=== PATIENT | female | born 1940 | race Caucasian/White ===

== ENCOUNTER 2019-03-21 12:01 | Observation (INO) | payer MEDICARE ==
[~2019-03-21] VITALS: Ht 170.2 cm; Wt 139.4 kg
[2019-03-21] MEDS ORDERED: MORPHINE SULFATE 4 MG/ML, 1ML IVPush PRN (12:30)
[2019-03-21] MEDS ORDERED: ASPIRIN 81 MG TABLET CHEW PO ONE (12:30)
--- NOTE | 2019-03-21 12:34 | NUR ---
Received report from MALLORIE Carmen. All questions answered. Assuming care of pt at this time. NADN. No other needs expressed. Call light within reach.
[2019-03-21] MEDS ORDERED: ASPIRIN 81 MG TABLET CHEW ONE (12:48)
[2019-03-21] MEDS ORDERED: MORPHINE SULFATE 4 MG/ML, 1ML ONE (12:49)
[2019-03-21 12:58] LABS: BASOPHILS # (AUTO) 0.01 x10^3/uL (0-0.1); BASOPHILS % (AUTO) 0 % (0-1); EOSINOPHILS % (AUTO) 3 % (1-7); LYMPHOCYTES # (AUTO) 1.43 x10^3/uL (1-3.4); LYMPHOCYTES % (AUTO) 20 % (22-44); MD NO; MEAN CORPUSCULAR HEMOGLOBIN 28.5 pg (27.0-34.8); MEAN PLATELET VOLUME 10.9 fL (7.4-10.4); MONOCYTES # (AUTO) 0.67 x10^3/uL (0.2-0.8); MONOCYTES % (AUTO) 9 % (2-9); NEUTROPHILS # (AUTO) 4.89 x10^3/uL (1.8-6.8); NEUTROPHILS % (AUTO) 68 % (42-75); PLATELET COUNT 142 x10^3/uL (130-400); RED BLOOD COUNT 4.11 x10^6/uL (3.82-5.3); RED CELL DISTRIBUTION WIDTH 16.8 % (9.6-15.2)
--- NOTE | 2019-03-21 13:00 | NUR ---
Provided medication per EMAR. NADN. No needs expressed. Pt remains connected to NIBP cuff, continous pulse ox monitor, and county historian. Bedrails up x 2 and call light within reach.
[2019-03-21 13:11] LABS: ALBUMIN 3.5 g/dL (3.4-5.0); ANION GAP 4 mmol/L (5-15); CALCIUM 9.4 mg/dL (8.5-10.1); CHLORIDE 106 mmol/L (98-107)
[2019-03-21 13:18] LABS: ALANINE AMINOTRANSFERASE 32 U/L (12-78); ALKALINE PHOSPHATASE 70 U/L (45-117); CREATININE 1.35 mg/dL (0.55-1.02); TOTAL PROTEIN 6.9 g/dL (6.4-8.2); TROPONIN I < 0.015 ng/mL (0.000-0.045)
[2019-03-21] MEDS ORDERED: ALLO100T30 PO (13:52)
[2019-03-21] MEDS ORDERED: AMLO-150 PO (13:52)
[2019-03-21] MEDS ORDERED: BUDE10.2 INH (13:52)
[2019-03-21] MEDS ORDERED: FLUT12HF2 INH (13:52)
[2019-03-21] MEDS ORDERED: IPRA4AER INH (13:52)
[2019-03-21] MEDS ORDERED: APIX5TAB PO (13:52)
[2019-03-21] MEDS ORDERED: GABA300C10 PO (13:52)
[2019-03-21] MEDS ORDERED: INSU100C5 SQ-INSULIN (13:52)
[2019-03-21] MEDS ORDERED: ACYC-113 PO (13:52)
[2019-03-21] MEDS ORDERED: IPRA3AMP30 INH (13:52)
[2019-03-21] MEDS ORDERED: dextrose PO (13:52)
[2019-03-21] MEDS ORDERED: INSU100I13 SQ-INSULIN (13:52)
[2019-03-21] MEDS ORDERED: albuterol INH (13:52)
[2019-03-21] MEDS ORDERED: cranberry PO (13:52)
[2019-03-21] MEDS ORDERED: CETI-237 PO (13:52)
[2019-03-21] MEDS ORDERED: LACT1CAP11 PO (14:03)
[2019-03-21] MEDS ORDERED: MULT-115 PO (14:03)
[2019-03-21] MEDS ORDERED: PANT40TA5 PO (14:03)
[2019-03-21] MEDS ORDERED: OXYBUTYNIN PO (14:03)
[2019-03-21] MEDS ORDERED: NITR0.4T41 SL (14:03)
[2019-03-21] MEDS ORDERED: ROSU5TAB PO (14:03)
[2019-03-21] MEDS ORDERED: METO200T2 PO (14:03)
[2019-03-21] MEDS ORDERED: NYST60PO TP (14:03)
[2019-03-21] MEDS ORDERED: LOSA25TA2 PO (14:03)
[2019-03-21] MEDS ORDERED: ISOS120T4 PO (14:03)
[2019-03-21] MEDS ORDERED: LEVO75TA PO (14:03)
[2019-03-21] MEDS ORDERED: KRIL1CAP5 PO (14:03)
[2019-03-21] MEDS ORDERED: VANC50SO3 PO (14:03)
[2019-03-21] MEDS ORDERED: Tumeric PO (14:03)
--- NOTE | 2019-03-21 16:30 | NUR ---
Assisted pt in changing personal brief and perineal care. Pt apprecative. Pt resting on gurney. Food tray ordered. NADN. No needs expressed from pt at this time. Pending admission to floor.
--- NOTE | 2019-03-21 16:50 | NUR ---
Provided pt food tray. Pt appreciative. NADN. No needs expressed.
--- NOTE | 2019-03-21 17:15 | NUR ---
Pt transfered from ED to floor and left with all personal belongings. NADN. No needs expressed.
[2019-03-21 17:24] VITALS: BP 128/56
[2019-03-21] MEDS ORDERED: ATORVASTATIN 20 MG TABLET PO SCH (17:30)
[2019-03-21] MEDS ORDERED: VANCOMYCIN 50 MG/ML ORAL SUSP PO SCH (17:30)
[2019-03-21] MEDS ORDERED: NITROGLYCERIN SINGLE TAB 0.4 MG SL SCH (17:30)
[2019-03-21] MEDS: ALBUTEROL/IPRATROPIUM 2.5MG/0.5MG, 3 ML NPPB SCH (18:00)
[2019-03-21 18:12] LABS: TROPONIN I < 0.015 ng/mL (0.000-0.045)
[2019-03-21] MEDS ORDERED: DEXTROSE 4 GM TAB.CHEW PO PRN (18:30)
[2019-03-21] MEDS ORDERED: GLUCAGON 1 MG IM PRN (18:30)
[2019-03-21] MEDS ORDERED: DEXTROSE 50%, 50ML SYRINGE IVPush PRN (18:30)
[2019-03-21] MEDS: ALBUTEROL/IPRATROPIUM 2.5MG/0.5MG, 3 ML NEB SCH ×2 (19:00→23:00)
[2019-03-21 19:47] VITALS: BP 132/72
[2019-03-21 20:45] LABS: CULTURE INDICATED? YES; MICROSCOPIC INDICATED
[2019-03-21] MEDS ORDERED: TEMPLATE NON-FORMULARY MED. (Ipratropium/Albuterol Sulfate (Combivent Respimat Inhal Spray INH SCH (21:00)
[2019-03-21] MEDS ORDERED: TEMPLATE NON-FORMULARY MED. (Budesonide/Formoterol Fumarate (Symbicort 160-4.5 Mcg Inhaler INH SCH (21:00)
[2019-03-21] MEDS: NYSTATIN TOPICAL POWDER 15GM TP SCH (21:00)
[2019-03-21] MEDS: BUDESONIDE 0.5 MG/2 ML INHA NPPB SCH (21:00)
[2019-03-21] MEDS ORDERED: INSULIN GLARGINE 100 UNITS/ML, PEN SQ-INSULIN SCH (21:00)
[2019-03-21] MEDS: INSULIN LISPRO 100 UNITS/ML, PEN SQ-INSULIN SCH (21:00)
[2019-03-21] MEDS: GABAPENTIN 300 MG CAPSULE PO SCH (22:01)
[2019-03-21] MEDS: LACTOBACILLUS CHEW TABLET PO SCH (22:01)
[2019-03-21] MEDS: SODIUM CHLORIDE FLUSH 10ML SYR IVF SCH (22:01)
[2019-03-21] MEDS: APIXABAN 5 MG TABLET PO SCH (22:01)
[2019-03-21] MEDS: MULTIVITAMIN 1 TABLET PO SCH (22:04)
[2019-03-21 22:55] LABS: TROPONIN I < 0.015 ng/mL (0.000-0.045)
[2019-03-22 01:37] VITALS: BP 144/66
[2019-03-22] MEDS: ALBUTEROL/IPRATROPIUM 2.5MG/0.5MG, 3 ML NEB SCH (03:00)
[2019-03-22 05:42] LABS: ANION GAP 5 mmol/L (5-15); CALCIUM 9.3 mg/dL (8.5-10.1); CHLORIDE 104 mmol/L (98-107)
[2019-03-22 05:59] LABS: MD YES; MEAN CORPUSCULAR HGB CONC 32.7 g/dL (32.4-35.8); MEAN CORPUSCULAR VOLUME 88.5 fL (80-100); MEAN PLATELET VOLUME 11.4 fL (7.4-10.4); PLATELET COUNT 130 x10^3/uL (130-400); RED CELL DISTRIBUTION WIDTH 17.1 % (9.6-15.2)
[2019-03-22] MEDS ORDERED: LEVOTHYROXINE 75 MCG TABLET PO SCH (06:00)
[2019-03-22 06:01] LABS: BAND#(MANUAL) 0.17 x10^3/uL; BANDS%(MANUAL) 3 % (0-7); EOS#(MANUAL) 0.12 x10^3/uL (0.0-0.4); EOS% (MANUAL) 2 % (1-7); LYMPH#(MANUAL) 2.38 x10^3/uL (1-3.4); LYMPHS% (MANUAL) 41 % (22-44); MONOS#(MANUAL) 0.35 x10^3/uL (0.3-2.7); MONOS% (MANUAL) 6 % (2-9); SEG#(MANUAL) 2.78 x10^3/uL (1.8-6.8); SEGS% (MANUAL) 48 % (42-75)
[2019-03-22 06:02] LABS: ANISOCYTOSIS 1+; OVALOCYTES 1+
[2019-03-22 06:03] LABS: <PLATELET ESTIMATE> ADEQUATE; LARGE PLATELETS 1+
[2019-03-22 06:50] VITALS: BP 166/73
[2019-03-22] MEDS: SODIUM CHLORIDE FLUSH 10ML SYR IVF SCH (09:00)
[2019-03-22] MEDS ORDERED: CETIRIZINE 1 MG/ML ORAL SOL PO SCH (09:00)
[2019-03-22] MEDS ORDERED: BUDESONIDE 0.5 MG/2 ML INHA INH SCH (09:00)
[2019-03-22] MEDS ORDERED: LOSARTAN 25MG TABLET PO SCH (09:00)
[2019-03-22] MEDS ORDERED: PANTOPROZOLE 40MG TABLET PO SCH (09:00)
[2019-03-22] MEDS ORDERED: METOPROLOL SUCCINATE 100 MG TAB.ER.24H PO SCH (09:00)
[2019-03-22] MEDS ORDERED: ALLOPURINOL 100 MG TABLET PO SCH (09:00)
[2019-03-22] MEDS ORDERED: OXYBUTYNIN CHLORIDE 5 MG TABLET PO SCH (09:00)
[2019-03-22] MEDS ORDERED: ACYCLOVIR 200 MG CAPSULE PO SCH (09:00)
[2019-03-22] MEDS ORDERED: ISOSORBIDE MONONITRATE ER 60 MG TABLET PO SCH (09:00)
[2019-03-22] MEDS ORDERED: AMLODIPINE 5 MG TABLET PO SCH (09:00)
[2019-03-22] MEDS ORDERED: ALBUTEROL/IPRATROPIUM 2.5MG/0.5MG, 3 ML NPPB SCH (09:00)
[2019-03-22] MEDS: MULTIVITAMIN 1 TABLET PO SCH (09:30)
[2019-03-22] MEDS: GABAPENTIN 300 MG CAPSULE PO SCH (09:31)
[2019-03-22] MEDS: LACTOBACILLUS CHEW TABLET PO SCH (09:31)
[2019-03-22] MEDS: NYSTATIN TOPICAL POWDER 15GM TP SCH (09:33)
[2019-03-22] MEDS: APIXABAN 5 MG TABLET PO SCH (09:33)
[2019-03-22] MEDS: INSULIN LISPRO 100 UNITS/ML, PEN SQ-INSULIN SCH ×2 (09:34→12:40)
[2019-03-22] MEDS: ALBUTEROL/IPRATROPIUM 2.5MG/0.5MG, 3 ML NPPB SCH ×2 (10:50)
[2019-03-22] MEDS: BUDESONIDE 0.5 MG/2 ML INHA NPPB SCH (10:50)
[2019-03-22 12:34] VITALS: BP 165/71
== END 2019-03-22 14:26 | disposition home or self-care (01) ==
LOC: ED 14:09 → INTOOBSV 17:17 → 5SO 17:17 → DCLOUNGE 03-22 14:19
PROVIDERS: ADMIT Family Medicine; ATTEND Family Medicine
DX: R07.9 Chest pain, unspecified (principal); I25.10 Atherosclerotic heart disease of native coronary artery without angina pectoris; I48.0 Paroxysmal atrial fibrillation; J44.1 Chronic obstructive pulmonary disease with (acute) exacerbation; G47.33 Obstructive sleep apnea (adult) (pediatric); E11.22 Type 2 diabetes mellitus with diabetic chronic kidney disease; E78.5 Hyperlipidemia, unspecified; E03.9 Hypothyroidism, unspecified; I12.9 Hypertensive chronic kidney disease with stage 1 through stage 4 chronic kidney disease, or unspecified chronic kidney disease; I25.119 Atherosclerotic heart disease of native coronary artery with unspecified angina pectoris; I25.2 Old myocardial infarction; I89.0 Lymphedema, not elsewhere classified; N80.9 Endometriosis, unspecified; J44.9 Chronic obstructive pulmonary disease, unspecified; N18.3 Chronic kidney disease, stage 3 (moderate); Z86.718 Personal history of other venous thrombosis and embolism; Z79.01 Long term (current) use of anticoagulants; Z86.73 Personal history of transient ischemic attack (TIA), and cerebral infarction without residual deficits; Z95.5 Presence of coronary angioplasty implant and graft; Z99.81 Dependence on supplemental oxygen; Z87.891 Personal history of nicotine dependence; Z79.4 Long term (current) use of insulin; Z79.899 Other long term (current) drug therapy
CPT/HCPCS: 36415; 71045; 80048; 80053; 81001; 82962; 83605; 84484; 85025; 87077; 87086; 87186; 93005; 94640; 96372; 96374; 97162; 97166; 99284; G0378; J2270; J7620; J7626; J1815